=== PATIENT | female | born 1990 | race Hispanic/Latino ===

== ENCOUNTER → 2023-04-30 | Outpatient (CLI) | payer OTHER ==
[~2023-04-30] MED LIST: METHACHOLINE KIT INH ONE
== END ==
LOC: M CARPUL 07:36
PROVIDERS: ATTEND Nurse Practitioner Adult Health
DX: R06.02 Shortness of breath (principal)
CPT/HCPCS: 94070; J7674

== ENCOUNTER 2023-09-26 10:47 | Emergency (ER) | payer OTHER ==
[~2023-09-26] VITALS: Ht 180.3 cm; Wt 87.2 kg
[2023-09-26] MEDS ORDERED: TOBRSUS8 OP (12:30)
[2023-09-26 12:37] VITALS: BP 128/76; TEMP 97.1; O2SAT 97
== END 2023-09-26 12:38 | disposition home or self-care (01) ==
LOC: M ED 10:47
DX: H10.33 Unspecified acute conjunctivitis, bilateral (principal); Z79.899 Other long term (current) drug therapy

== ENCOUNTER → 2024-02-06 | Outpatient (CLI) | payer OTHER ==
[~2024-02-06] MED LIST changes: -METHACHOLINE KIT INH ONE; +TOBRSUS8 OP
== END ==
LOC: M RAD 12:51
PROVIDERS: ATTEND Pain Medicine Interventional Pain Medicine
DX: M25.562 Pain in left knee (principal)

== ENCOUNTER 2025-07-07 02:04 | Emergency (ER) | payer OTHER ==
[~2025-07-07] VITALS: Ht 180.3 cm; Wt 80.4 kg
[2025-07-07 02:06] VITALS: BP 122/56; TEMP 97; O2SAT 100
== END 2025-07-07 04:25 | disposition left against medical advice (07) ==
LOC: M ED 02:04
DX: Z53.21 Procedure and treatment not carried out due to patient leaving prior to being seen by health care provider (principal)